=== PATIENT | female | born 1985 | race Caucasian/White ===

== ENCOUNTER 2017-01-26 18:59 | Emergency (ER) | payer BC, OTHER ==
--- NOTE | 2017-01-26 20:26 | RAD ---
INDICATION: Traumatic fracture right lower extremity with deformity COMPARISON: Ankle series same date TECHNIQUE: AP and lateral views were obtained. FINDINGS: There is an angulated and comminuted fracture of the distal diaphysis of the fibula and there is an intra-articular fracture of the distal tibia better evaluated on the ankle series. There is soft tissue swelling with deformity and dislocation at the ankle mortise (see separate report). IMPRESSION: FRACTURES OF THE LOWER LEG DESCRIBED WITH DISLOCATION AT THE ANKLE MORTISE
--- NOTE | 2017-01-26 20:28 | RAD ---
INDICATION: Traumatic right fracture/dislocation COMPARISON: Right ankle June 23, 2015 TECHNIQUE: AP, lateral, and oblique views were obtained. FINDINGS: There is a comminuted and angulated distal fibular fracture with 30 degrees of angular deformity with the fracture apex directed anteriorly. There is a dominant avulsed fracture from the posterior malleolus which is displaced posteriorly and medially. There is posterior and lateral dislocation at the ankle mortise. There is soft tissue swelling with deformity. IMPRESSION: FRACTURE-DISLOCATION ABOUT THE RIGHT ANKLE
[2017-01-26] MEDS ORDERED: HYDROmorphone* 1 MG/ML 1 ML SYR IV SLOW PU ONE (21:25)
[2017-01-26] MEDS ORDERED: Naloxone* 0.4 MG/ML 1 ML VIAL ONE (21:56)
[2017-01-26] MEDS ORDERED: Midazolam concentrated* 5 MG/ML 1 ml VIAL ONE (21:57)
[2017-01-26] MEDS ORDERED: Flumazenil* 0.1 MG/ML 5 ML MDV ONE (21:57)
[2017-01-26] MEDS ORDERED: Morphine INJ* 10 MG/ML 1 ML SYRINGE ONE (21:57)
--- NOTE | 2017-01-26 22:51 | RAD ---
INDICATION: Right ankle fracture/dislocation-closed eduction COMPARISON: Right leg January 26, 2017 TECHNIQUE: AP and lateral views were obtained. FINDINGS: There is interval closed reduction. The angular deformity of the distal fibula is contracted and the ankle mortise is been restored. The bony detail is obscured in part by a splint. IMPRESSION: INTERVAL CLOSED REDUCTION.
--- NOTE | 2017-01-26 22:51 | RAD ---
INDICATION: Right ankle fracture/dislocation-reduction COMPARISON: Right ankle same date TECHNIQUE: AP and lateral views were obtained. FINDINGS: There is interval closed reduction. The fibular fracture fragments are now in good position and alignment and the ankle mortise has been restored. The posterior malleolar fracture now shows only minimal diastases. IMPRESSION: INTERVAL CLOSED REDUCTION.
--- NOTE | 2017-01-26 23:15 | ED ---
Lower Extremity - HPI Summary HPI Summary: 31 female presents via EMS with complaints of left lower leg and ankle pain that began after tripping and falling down ~3 stairs while carrying a back pack. She admits to having sprains in the past to the same ankle. Denies numbness and tingling. Admits to swelling and deformity. Has not taken any medications. Was unable to bear weight or walk on it. No pain to knee or hip. Denies hitting head and no LOC. PMHx significant for osteoporosis. No other complaints at this time. No neck, back or chest pain. - History of Current Complaint Chief Complaint: EDExtremityLower Stated Complaint: FALL RIGHT ANKLE PAIN Time Seen by Provider: 01/26/17 20:52 Hx Obtained From: Patient Hx Last Menstrual Period: 12/29/14 Mechanism Of Injury: Fall From Height Of: - 3 stairs Onset of Pain: Immediate, Post Accident Onset/Duration: Worse Since Severity Initially: Severe Severity Currently: Severe Pain Intensity: 10 Pain Scale Used: 0-10 Numeric Timing: Constant Location: Is Discrete @ - right lower leg/ankle Character Of Pain: Sharp, Aching Associated Signs And Symptoms: Positive: Swelling, Bruising Aggravating Factor(s): Movement, Weight Bearing Alleviating Factor(s): Nothing Able to Bear Weight: No - Allergies/Home Medications Allergies/Adverse Reactions: Allergies Allergy/AdvReac Type Severity Reaction Status Date / Time [facility] [place] Allergy Eyes Verified 02/05/17 09:26 Itchy/Swollen/Red/Watery Codeine Allergy Palpitations/heart Verified 02/05/17 09:26 racing Penicillins Allergy Hives Verified 02/05/17 09:26 Pearson Allergy Hives Verified 02/05/17 09:26 environmental Allergy Runny Nose Uncoded 02/05/17 09:26 PMH/Surg Hx/FS Hx/Imm Hx Endocrine/Hematology History: Denies: Hx Diabetes, Hx Thyroid Disease Cardiovascular History: Denies: Hx Hypertension, Hx Pacemaker/ICD Respiratory History: Denies: Hx Asthma, Hx Chronic Obstructive Pulmonary Disease (COPD) GI History: Denies: Hx Ulcer Sensory History: Denies: Hx Hearing Aid Psychiatric History: Denies: Hx Panic Disorder - Surgical History Surgery Procedure, Year, and Place: 2010 - WISDOM TOOTH EXTRACTION Infectious Disease History: No Infectious Disease History: Denies: Hx Clostridium Difficile, Hx Hepatitis, Hx Human Immunodeficiency Virus (HIV), Hx of Known/Suspected MRSA, Hx Shingles, Hx Tuberculosis, Hx Known/ Suspected VRE, Hx Known/Suspected VRSA, History Other Infectious Disease, Traveled Outside the [place] in Last 30 Days - Family History Known Family History: Positive: Diabetes - Social History Alcohol Use: Rare Substance Use Type: Reports: None Smoking Status (MU): Never Smoked Tobacco Review of Systems Constitutional: Negative Cardiovascular: Negative Respiratory: Negative Positive: Arthralgia, Myalgia, Decreased ROM, Edema - right ankle lower right leg Positive: Bruising, Other - edema Neurological: Negative All Other Systems Reviewed And Are Negative: Yes Physical Exam Triage Information Reviewed: Yes Vital Signs On Initial Exam: Initial Vitals Temp Pulse Resp BP Pulse Ox 98.9 F 100 20 163/102 99 01/26/17 19:21 01/26/17 19:21 01/26/17 19:21 01/26/17 19:21 01/26/17 19:21 Bp noted patient was in severe pain. BP noted. re-checked and improved throughout stay. Vital Signs Reviewed: Yes Appearance: Positive: Well-Appearing, No Pain Distress, Well-Nourished Skin: Positive: Warm, Skin Color Reflects Adequate Perfusion, Dry. Negative: Cold, Numb, Cyanosis @, Diaphoretic Head/Face: Positive: Normal Head/Face Inspection Eyes: Positive: Normal, Conjunctiva Clear ENT: Positive: Normal ENT inspection, Hearing grossly normal, Pharynx normal, TMs normal Neck: Positive: Supple, Nontender, No Lymphadenopathy Respiratory/Lung Sounds: Positive: Clear to Auscultation, Breath Sounds Present. Negative: Rales, Rhonchi, Wheezes Cardiovascular: Positive: Normal, RRR, Pulses are Symmetrical in both Upper and Lower Extremities - 2+ pedal b/l, Leg Edema Right - due to trauma. Negative: Murmur, Rub Abdomen Description: Positive: Nontender, No Organomegaly, Soft Bowel Sounds: Positive: Present Musculoskeletal: Positive: Limited @ - right ankle, Interruption @ - step off and obvious deformity of right ankle and distal right lower leg, Pain @ - right ankle, Edema Right - right ankle, Other - rest of MSK exam normal Neurological: Positive: Normal, Sensory/Motor Intact - sensation intact, Alert, Oriented to Person Place, Time, Reflexes Intact, NV Bundle Intact Distally, Unable to Assess Gait Psychiatric: Positive: Affect/Mood Appropriate AVPU Assessment: Alert - Teressa Coma Scale Best Eye Response: 4 - Spontaneous Best Motor Response: 6 - Obeys Commands Best Verbal Response: 5 - Oriented Coma Scale Total: 15 Procedures - Splinting Hand-Made Type: plaster Splint: sugar-tong - and posterior leg Pre-Proc Neuro Vasc Exam: normal Post-Proc Neuro Vasc Exam: normal - Joint Reduction Joint Reduction Site: ankle (R) Conscious Sedation: Yes - Dr Amato Reduction Attempts: 1 - Dr Salcedo Pre-Procedure NV Exam: Yes Post Joint Reduction Film: joint reduced Diagnostics - Vital Signs Vital Signs Temp Pulse Resp BP Pulse Ox 01/26/17 21:41 20 01/26/17 19:23 98.9 F 100 20 163/102 99 01/26/17 19:21 98.9 F 100 20 163/102 99 - Laboratory Lab Statement: Any lab studies that have been ordered have been reviewed, and results considered in the medical decision making process. - Radiology right lower leg Xray Interpretation: Positive (See Comments) - FRACTURES OF THE LOWER LEG DESCRIBED WITH DISLOCATION AT THE ANKLE MORTISE Radiology Interpretation Completed By: Radiologist right ankle Xray Interpretation: Positive (See Comments) - FRACTURE-DISLOCATION ABOUT THE RIGHT ANKLE Radiology Interpretation Completed By: Radiologist right lower leg pr Xray Interpretation: Positive (See Comments) - There is interval closed reduction. The angular deformity of the distal fibula is contracted and the ankle mortise is been restored. The bony detail is obscured in part by a splint. Radiology Interpretation Completed By: Radiologist right ankle FL Xray Interpretation: Positive (See Comments) - There is interval closed reduction. The fibular fracture fragments are now in good position and alignment and the ankle mortise has been restored. The posterior malleolar fracture now shows only minimal diastases. Radiology Interpretation Completed By: Radiologist - CT right lower ext post red CT Interpretation: Positive (See Comments) - comminute distal fibular and tibial fractures as detailed. large intra-articular fracture fragment anterolateral ankle joint. punctuate air in ankle superficial soft tissues. which could be from penetrating injury or open fracture. clinically correlate. CT Interpretation Completed By: Radiologist Re-Evaluation - Re-Evaluation First Eval Re-Evaluation Time: 22:30 Change: Improved - had some relief after dilauded, is aware of current plan Lower Extremity Course/Dx - Course Course Of Treatment: x-rays obtained and positive for displaced and fractured tibia/fibula. CT ordered upon request of Dr Salcedo. Dr Salcedo came into ED for reduction and splinting due to extent of injury. Patient tolerated procedure well under concious sedation with Dr Amato. Post reduction imaging obtained. Given pain management and wheelchair at home. RICE and follow up. - Diagnoses Differential Diagnosis/HQI/PQRI: Positive: Contusion, Dislocation, Fracture ( Closed), Sprain, Strain Provider Diagnoses: Fracture, tibia and fibula - Physician Notifications Discussed Care Of Patient With: Dr Salcedo - Dr Amato Time Discussed With Above Provider: 21:20 - Reduced at 22:15 Instructed by Provider To: MD Will See In ED Discharge - Discharge Plan Condition: Stable Disposition: HOME Prescriptions: HYDROcodone/ACETAMIN 5-325 MG* [[place] 5-325 TAB*] 1 tab PO Q6H PRN #30 tab PRN Reason: Pain Ibuprofen TAB* [Motrin TAB* 600 MG] 600 mg PO Q6H PRN #45 tab PRN Reason: Pain Misc. Devices [Wheelchair] 1 mis XX DAILY #1 mis Patient Education Materials: Leg Fracture (ED) Referrals: Jennyfer Shrestha MD [Primary Care Provider] - Additional Instructions: Take prescribed medication as directed. Take ibuprofen every 6 hours in between the pain medication "[place]". Take with food. Rest and elevate your leg. Ice multiple times daily. Follow up and make appointment with orthopedics. Do not get splint wet or remove splint.
[2017-01-27 00:44] VITALS: BP 145/96
--- NOTE | 2017-01-27 06:50 | CONS ---
CONSULTATION REPORT: DATE OF CONSULTATION: 01/26/17 ATTENDING: Erica Salcedo MD CHIEF COMPLAINT: Right leg pain. HISTORY OF PRESENT ILLNESS: Briefly, Marisa is a 32-year-old female who tripped down the stairs and landed awkwardly on her right leg and came to the ER when she was unable to weight bear. She had an obvious deformity. She had some mild numbness and tingling and she was brought to the ER with her friend. She was diagnosed with a trimalleolar fracture dislocation and then Orthopedics was consulted for a closed reduction. She is in her usual state of health. She only has a history of frequent sprains in the right ankle as well as osteopenia. She is a nonsmoker. PAST MEDICAL HISTORY: Significant for allergies, osteopenia, and ankle sprains. MEDICATIONS: 1. P.r.n. ibuprofen. 2. Allergy medicines. ALLERGIES: None. PAST SURGICAL HISTORY: None. SOCIAL HISTORY: She is 32 years old. She works in the baking industry. She denies tobacco. She drinks alcohol mostly socially. She is a community ambulator. Family History: negative and noncontributory REVIEW OF SYSTEMS: A 14-point review of systems was reviewed, significant for anxiety, right ankle pain, and inability to weight bear. Otherwise, remainder of systems is negative. PHYSICAL EXAMINATION: General: She is in no acute distress. She is well- developed, well-nourished. She is alert and oriented x3. She has a pleasantly normal affect. She is EOMI. Chest is clear. Heart is regular rate and rhythm. Abdomen is soft and nontender. She has pleasant mood and she is very anxious and she is morbidly obese. Examination of the right ankle demonstrates the skin is intact. There is a mild amount of abrasion medially. There is an obvious deformity with mild tenting of the skin. She has a palpable DP pulse. She is able to gently flex and extend toes, which causes her pain. She is nontender about the knee. She is sensate about the medial, lateral, plantar foot and mildly diminished sensation dorsally as well as diminished sensation in the first dorsal web space. She has 2+ DP pulse. IMAGING: X-rays were reviewed that demonstrate a right ankle fracture dislocation, which involves a moderate sized posterior malleolar piece. ASSESSMENT AND PLAN: She has a trimalleolar fracture dislocation. This needs to be reduced urgently under conscious sedation. After discussion of the fracture type and injury and the fact that she will need a surgery, she underwent conscious sedation by the attending physician. The right ankle was prepped and draped in usual sterile fashion and the ankle joint was intraarticularly injected with about 10 cc of 1% lidocaine. She tolerated the injection well. After the patient was adequately sedated, a gentle reduction was obtained. The alignment was improved. A well-padded short leg splint was then placed. She was able to flex and extend her digits afterwards. She continued to have a bounding DP pulse, but she still had mildly diminished sensation about the first dorsal web space and the dorsal aspect of the foot. She was instructed to ice and elevate toes above the nose, flex and extend her toes and I will have her follow up with my foot and ankle partner, Dr. Pace, who is aware. She will get a postop x-ray as well as CT scan. [id number]/[facility] #: [id number] MTDD
--- NOTE | 2017-01-27 07:13 | RAD ---
INDICATION: Metacarpal fracture dislocation of the ankle status post reduction. COMPARISON: Comparison is made with prior x-ray studies of the right ankle and lower leg from January 26, 2017. TECHNIQUE: Contiguous axial sections were obtained of the right lower leg. Images were reconstructed in the sagittal and coronal planes. FINDINGS: The lower leg is in a plaster splint. The patient is status post external reduction of a fracture dislocation of the ankle. There is a oblique comminuted fracture of the distal diaphysis of the fibula. There is a butterfly fragment arising from the posterior cortex. The fracture fragments are slightly . There is slight medial angulation of the distal fragment relative the the proximal fragment. There is also a comminuted fracture of the posterior malleolus of the tibia involving approximately 25% of the articular surface. The major fracture fragment is distracted posteriorly and slightly overriding. There is a step-off along the posterior articular surface of approximately 5 mm. In addition there is a large displaced fracture fragment present along the anterolateral margin of the tibia likely intra-articular measuring 8 x 5 x 5 mm in size. There is widening of the ankle mortise. No additional fractures are seen. There is a small amount of air present within the anterior soft tissues at the level of the distal tibia. IMPRESSION: 1. STATUS POST EXTERNAL REDUCTION. 2. OBLIQUE COMMINUTED SLIGHTLY DISPLACED FRACTURE OF THE DISTAL DIAPHYSIS OF THE FIBULA. 3. COMMINUTED DISPLACED INTRA-ARTICULAR FRACTURE OF THE POSTERIOR MALLEOLUS. 4. DISPLACED LIKELY INTRA-ARTICULAR FRACTURE FRAGMENT PRESENT ALONG THE ANTEROLATERAL MARGIN OF THE TIBIA. 4. DIFFUSE WIDENING OF THE ANKLE MORTISE. 5. SMALL AMOUNT OF AIR IN THE ANTERIOR SOFT TISSUES.
== END 2017-01-27 01:19 | disposition home or self-care (01) ==
LOC: ED 18:59
DX: S82.201A Unspecified fracture of shaft of right tibia, initial encounter for closed fracture (principal); W19.XXXA Unspecified fall, initial encounter; Y93.89 Activity, other specified; Y92.9 Unspecified place or not applicable
CPT/HCPCS: 99283; J1170; J2270; J2310

== ENCOUNTER 2017-02-05 08:49 | Day surgery (SDC) | payer BC ==
[~2017-02-05 08:49] MED LIST: Buffered Lidocaine 0.9% SYRIN* 5 ML/SYR SYRINGE INTRADERM ONE; Buffered Lidocaine 0.9% SYRIN* 5 ML/SYR SYRINGE ONE; Clindamycin 900 MG IVPREMIX(* 900 MG/50 ML SDV IV ONE; Dexamethasone IV* 4 MG/ML 1 ML (4 MG) IV SLOW PU ONE; Dexamethasone IV* 4 MG/ML 1 ML (4 MG) ONE; Famotidine IV* 10 MG/ML 2 ML (20 mg) IV ONE; Famotidine IV* 10 MG/ML 2 ML (20 mg) ONE
[2017-02-05 08:59] LABS: Manual Entry Verification GRE0060; UR Preg Internal Control QC Line Present
[2017-02-05] MEDS ORDERED: Midazolam* 1 MG/ML 2 ML VIAL (2 MG) ONE ×2 (09:27→10:38)
[2017-02-05] MEDS ORDERED: Bupivacaine 0.5% W/EPI SDV* 10 ML VIAL INJ ONE (09:50)
[2017-02-05] MEDS ORDERED: Lidocaine 1% INJ* 10 MG/ML 30 ML SDV ONE (10:15)
[2017-02-05] MEDS ORDERED: Propofol* 10 MG/ML 20 ML BTL IV PUSH ONE (10:18)
[2017-02-05] MEDS ORDERED: Succinylcholine* 20 MG/ML 10 ML VIAL ONE (10:18)
[2017-02-05] MEDS ORDERED: KETAMINE HCL* 50 MG/ML 10 ML VIAL ONE (10:22)
[2017-02-05] MEDS ORDERED: DiMENhydriNATE IV* 50 MG/ML VIAL IV PUSH PRN (11:52)
[2017-02-05] MEDS ORDERED: Ibuprofen TAB* 600 MG PO PRN (11:52)
[2017-02-05] MEDS ORDERED: fentaNYL* 50 MCG/ML 2 ML VIAL (100 MCG VIAL) ONE ×2 (12:53→13:18)
[2017-02-05] MEDS: fentaNYL* 50 MCG/ML 2 ML VIAL (100 MCG VIAL) IV PRN ×4 (12:53→13:59)
[2017-02-05] MEDS ORDERED: oxyCODONE TAB* 5 MG TAB ONE (13:09)
[2017-02-05] MEDS ORDERED: Ibuprofen TAB* 600 MG ONE ×2 (13:27→13:30)
[2017-02-05] MEDS ORDERED: HYDROmorphone* 1 MG/ML 1 ML SYR ONE (14:21)
[2017-02-05] MEDS: HYDROmorphone* 1 MG/ML 1 ML SYR IV PRN ×2 (14:22→14:45)
[2017-02-05 14:46] VITALS: BP 129/83
--- NOTE | 2017-02-06 05:25 | OP ---
DATE OF OPERATION: 02/05/17 - SDS DATE OF : 85 SURGEON: Mustapha Pace MD WOMEN'[employer] BASKETBALL COACH: Kika Simon PA-C. ANESTHESIOLOGIST: Miquel Montenegro MD ANESTHESIA: General PRE-OP DIAGNOSIS: Trimalleolar ankle fracture. POST-OP DIAGNOSIS: Trimalleolar ankle fracture. OPERATIVE PROCEDURE: Posterior approach with internal fixation, posterior malleolus and fibula. DESCRIPTION OF PROCEDURE: The patient was taken to the operating room where prone positioning was used. We made a longitudinal incision half way between the fibula and the Achilles tendon. Sural nerve was identified and protected in the posterior flap. The fibula was noted to be shortened with a large butterfly fragment. The tibial fragment was exposed by taking a Mckeon elevator and sweeping the flexor hallucis brevis off the posterior aspect of the tibia with bent retractor to protect the medial longitudinal neurovascular structures. We then digitally reduced the posterior malleolar fragment pinning this temporarily. A T-shaped distal radius plate was pre-bent to fit the back of the tibia and fixed with posterior and anterior cortical screws. Good lateral view at this point showed good reduction of the plafond. We then noted the fibula in depth. There was large butterfly which was brought back to the main distal fragment with a #22 gauge stainless wire. We then reduced the fragments out to length running a 7 hole 3.5 mm recon plate along the posterior lateral aspect. This was fixed above and below the fracture fragments. Again x- rays intraoperatively showed satisfactory position of the hardware and fixation. We then irrigated both medial and lateral wounds closing with #2-0 Vicryl subcu and arlet and a compression dressing and plaster splint applied. [id number]/[facility] #: [id number] MTDD
--- NOTE | 2017-02-06 09:42 | RAD ---
CPT II Codes: 6045F INDICATION: Right ankle fracture, traumatic Fluoroscopic services provided for referring physician. 7.1 seconds of fluoroscopy time was used. 2 spot images demonstrates hardware fixating a fracture of the fibula and tibia. IMPRESSION: Fluoroscopic services provided for referring physician.
== END 2017-02-05 15:40 | disposition home or self-care (01) ==
LOC: OR 08:49
PROVIDERS: ATTEND Orthopaedic Surgery
DX: S82.841A Displaced bimalleolar fracture of right lower leg, initial encounter for closed fracture (principal); Z68.42 Body mass index [BMI] 45.0-49.9, adult; Z87.891 Personal history of nicotine dependence; W10.9XXA Fall (on) (from) unspecified stairs and steps, initial encounter; Y92.9 Unspecified place or not applicable
CPT/HCPCS: 76001; 81025; A9270-GY; C1713; C1776; J0330; J1100; J1170; J2001; J2250; J2704; J3010